=== PATIENT | female | born 1990 | race Caucasian/White ===

== ENCOUNTER 2022-11-22 11:58 | Emergency (ER) | payer BC, MEDICAID, SELFPAY ==
[2022-11-22] VITALS (10 sets, daily range): BP systolic 120–202; BP diastolic 80–139; PULSE 79–95; RESP 12–18; TEMP 36.6; O2SAT 96–100; BMI 32.4
--- NOTE | 2022-11-22 12:44 | ECG_ITS ---
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 Measurements Intervals [place] Rate: 80 P: 32 IA: 145 QRS: 41 QRSD: 94 T: 10 QT: 368 QTc: 425 Interpretive Statements SINUS RHYTHM WITH SINUS ARRHYTHMIA INTERPRETATION BASED ON A DEFAULT AGE OF 40 YEARS No previous ECG available for comparison Electronically Signed On 11-22-2022 20:37:00 CDT by Josephine Oliveira M.D. [id number]
--- NOTE | 2022-11-22 12:44 | CT_ITS ---
WS: [id number] CT HEAD NONCONTRAST HISTORY: headache, htn TECHNIQUE: Contiguous axial imaging performed through the brain in 2.5 mm imaging. Bone and soft tiss ue windows. Sagittal and coronal reformats reviewed. All CT scans at [facility] use at least one of these dose optimization techniques: automated exposure control; mA and/or kV adjustment per pa tient size (includes targeted exams where dose is matched to clinical indication); or iterative recon struction. DLP: 974.74 mGy.cm COMPARISON: None available. No acute intracranial hemorrhage, midline shift or mass effect. No atrophy or prior infarcts or herniation. Ventricles: Normal size with no hydrocephalus. Paranasal sinuses: As visualized are clear. Mastoid air cells: Well pneumatized. Calvarium and scalp: Skull is intact with no soft tissue edema or swelling. IMPRESSION: Negative head CT.
--- NOTE | 2022-11-22 12:47 | W.ED.HA ---
HPI - Headache General: Chief Complaint: Headache Stated Complaint: headache for 3 days Time Seen by Provider: 11/22/22 12:40 History of Present Illness: Presents to the ER with complaints of headache right-sided neck pain nausea vomiting started this morning. Headache started 3 days ago. She denies having any headaches prior to this. Denies any fevers chills cough cold sore throat runny nose is diarrhea. Patient saw her PCP this morning and due to her blood pressure told her to go straight to the ER. Blood pressure was 176/150 and 176/130 in triage. Review of Systems General: Reports: 10 or more systems reviewed and unremarkable except in HPI and below PFSH ED PFSH: Social History Smoking and tobacco status: never smoked Physical Exam Const: COMMON NORMALS: no acute distress, average body habitus, patient oriented x3, no limitations, healthy appearing, alert and well nourished HENMT: COMMON NORMALS: normocephalic, atraumatic, hearing grossly normal bilaterally, external ears normal, Normal external nose present and moist oral mucous membranes HEAD & SCALP: normocephalic and atraumatic NOSE: Normal external nose present EXTERNAL EAR: Yes external ears normal Eye: COMMON NORMALS: Equal, round and reactive pupils present, EOMs intact bilaterally, conjunctivae normal and no scleral icterus CONJUNCTIVA: Yes conjunctivae normal PUPIL: Yes Equal, round and reactive pupils present Neck/C-Spine: COMMON NORMALS: full ROM, no lymphadenopathy, supple, no meningeal signs, no JVD and Thyroid normal THYROID: Thyroid normal Chest: COMMONS NORMALS: normal inspection of the chest and normal palpation of entire chest wall Resp: COMMON NORMALS: normal respiratory effort, No retractions, No use of accessory muscles and clear to auscultation bilaterally AUSCULTATION: clear to auscultation bilaterally Cardio: COMMON NORMALS: no JVD, regular rate, regular rhythm, S1 normal heart sound present, S2 normal heart sound present, No gallops present (Cardio), No clicks present (Cardio), No murmurs present (Cardio) and No rub (Cardio) RATE: regular rate RHYTHM: regular rhythm HEART SOUNDS: S1 normal heart sound present and S2 normal heart sound present GI: COMMON NORMALS: Normal to inspection, nondistended, normoactive bowel sounds present, Soft to palpation, non-tender, No hepatosplenomegaly present and no masses PALPATION: Yes Soft to palpation and Yes No hepatosplenomegaly present : COMMON NORMALS: Yes no CVA tenderness BLADDER/KIDNEY EXAM: Yes no CVA tenderness Back/Pelvis: COMMON NORMALS: no CVA tenderness Neuro: COMMON NORMALS: patient oriented x3 SENSORIUM/ORIENTATION: Yes alert MENINGEAL SIGNS: Yes no meningeal signs Course Vital Signs: Vital signs: Vital Signs Temperature 97.9 F 11/22/22 12:42 Pulse Rate 82 11/22/22 13:18 Respiratory Rate 16 11/22/22 14:42 Blood Pressure 120/83 11/22/22 14:43 Pulse Oximetry 100 11/22/22 13:18 Oxygen Delivery Me thod Room Air 11/22/22 12:42 MDM - Headache Medical Decision Making Patient presents to the ER with a severely high blood pressure of 185/132 along with nausea vomiting. Patient normally does not get headaches nor has problems with blood pressure. Patient's PCP sent her over here for further evaluation. Lab work was obtained EKG and head CT are pending. Patient was given 20 mg of hydralazine IV. Blood pressure improved patient was given 4 mg of morphine 4 mg Zofran and headache improved. Patient be discharged home to follow-up with her PCP on an as-needed basis. Differential Diagnosis Likely headache; Unlikely migraine, tension headache, subarachnoid hemorrhage, meningitis, sinusitis or postconcussion syndrome Medical Records I reviewed the patient's medical records. Lab Data I reviewed the patient's lab results. 11/22/22 12:56 11/22/22 12:56 Laboratory Results WBC 7.81 10^3/uL (3.29-11.43) 11/22/22 12:56 RBC 5.81 10^6/uL (3.85-5.65) H 11/22/22 12:56 Hgb 16.20 g/dL (11.27-16.99) 11/22/22 12:56 Hct 48.1 % (36-47) H 11/22/22 12:56 MCV 82.8 fl (85-98) L 11/22/22 12:56 MCH 27.9 pg (27-33) 11/22/22 12:56 MCHC 33.7 g/dL (30-55) 11/22/22 12:56 RDW 12.2 % (12.1-15.1) 11/22/22 12:56 Plt Count 251 10^3/cmm (157-399) 11/22/22 12:56 MPV 10.9 fL (7.4-10.4) H 11/22/22 12:56 Neut % (Auto) 67.2 % 11/22/22 12:56 Lymph % (Auto) 25.1 % 11/22/22 12:56 [place] % (Auto) 4.6 % 11/22/22 12:56 Eos % (Auto) 1.9 % 11/22/22 12:56 Baso % (Auto) 0.9 % 11/22/22 12:56 Neut # (Auto) 5.25 10^3/uL (1.8-7.7) 11/22/22 12:56 Lymph # (Auto) 2.0 10^3/uL (0.8-4.8) 11/22/22 12:56 [place] # (Auto) 0.4 10^3/uL (0.2-0.9) 11/22/22 12:56 Eos # (Auto) 0.2 10^3/uL (0.0-0.8) 11/22/22 12:56 Baso # (Auto) 0.1 10^3/uL (0.0-0.1) 11/22/22 12:56 Nucleated RBC % (auto) 0 % 11/22/22 12:56 Nucleated RBCs # 0.0 /100WBC 11/22/22 12:56 Sodium 138 mmol/L (136-145) 11/22/22 12:56 Potassium 3.8 mmol/L (3.5-5.1) 11/22/22 12:56 Chloride 101 mmol/L (98-107) 11/22/22 12:56 Carbon Dioxide 27 mmol/L (22-29) 11/22/22 12:56 Anion Gap 13.8 (5-19) 11/22/22 12:56 BUN 11 mg/dL (6-20) 11/22/22 12:56 Creatinine 0.6 mg/dL (0.5-0.9) 11/22/22 12:56 GFR Calculation 115.1 mL/min (90-130) 11/22/22 12:56 Glucose 87 mg/dL (65-115) 11/22/22 12:56 Calculated Osmolality 285 mOsm/kg (285-295) 11/22/22 12:56 Calcium 9.7 mg/dL (8.5-10.5) 11/22/22 12:56 Magnesium 2.0 mg/dL (1.7-2.3) 11/22/22 12:56 Total Bilirubin 1.1 mg/dL (0.15-1.2) 11/22/22 12:56 AST 56 U/L (0-32) H 11/22/22 12:56 ALT 58 U/L (0-33) H 11/22/22 12:56 Alkaline Phosphatase 82 U/L (35-105) 11/22/22 12:56 Troponin T Baseline 6 ng/L (0-10) 11/22/22 12:56 Troponin T 120 Minute 6.00 ng/L (0-10) 11/22/22 14:31 Delta Troponin T 0 ABS# (0-10) 11/22/22 14:31 Total Protein 7.3 g/dL (6.6-8.7) 11/22/22 12:56 Albumin 4.7 g/dL (3.5-5.2) 11/22/22 12:56 Globulin 2.6 g/dL (1.3-4.6) 11/22/22 12:56 Urine Color Yellow (Yellow) 11/22/22 12:45 Urine Appearance Clear (CLEAR) 11/22/22 12:45 Urine pH 6 (5-7) 11/22/22 12:45 Ur Specific [place] 1.020 (1.005-1.030) 11/22/22 12:45 Urine Protein Neg (Negative) 11/22/22 12:45 Urine Glucose (UA) Norm (Normal) 11/22/22 12:45 Urine Ketones Negative (Negative) 11/22/22 12:45 Urine Blood Neg (Negative) 11/22/22 12:45 Urine Nitrate Negative (Negative) 11/22/22 12:45 Urine Bilirubin Neg (Negative) 11/22/22 12:45 Urine Urobilinogen Norm mg/dL (Negative) 11/22/22 12:45 Ur Leukocyte Esterase Negative (Negative) 11/22/22 12:45 EKG Data EKG 1: I personally reviewed and interpreted this EKG as follows: EKG interpretation date: 11/22/22 EKG interpretation time: 12:40 Prior EKG tracings: not available for review Interpretation: EKG showed ventricular rate 80 bpm, LA interval 145, QRS duration 94, QTc 303, sinus rhythm with sinus arrhythmia, and no ST-T wave changes EKG 2: I personally reviewed and interpreted this EKG as follows: EKG interpretation date: 11/22/22 EKG interpretation time: 14:53 Prior EKG tracings: available for review Interpretation: EKG showed ventricular rate 84 beats minute, LA interval 135, QRS duration 97, QTc 429, sinus rhythm, moderate T wave abnormality, T waves in V3 and V4 Discharge Plan Discharge Patient Disposition: Home Clinical Impression: Headache Qualifiers: Headache type: unspecified Headache chronicity pattern: acute headache Intractability: not intractable Qualified Code(s): R51.9 - Headache, unspecified Hypertension Qualifiers: Hypertension type: unspecified Qualified Code(s): I10 - Essential (primary) hypertension Condition: Stable Prescriptions: No Action estradiol 2 mg tablet 2 mg PO DAILY diphenhydramine-acetaminophen [Tylenol PM Extra Strength] 25-500 mg tablet 1 tab PO DAILY PRN (Reason: Pain) phentermine 37.5 mg tablet 37.5 mg PO DAILY lisinopril 10 mg Tablet 10 mg PO BID Discharge Orders: Discharge ED (Routine); Ordered 11/22/22 Ordered By: Barry Romero Patient Instructions: Headache, Hypertension (ED) Activity Restrictions/Additional Instructions: Please keep a blood pressure log please follow-up with your family practice physician in the next 7 to 10 days or sooner as needed. For further evaluation and treatment of your headache and blood pressure. Coding Level of Care Code ED Pasting Inspector for Leslie Dia
[2022-11-22 13:18] LABS: Basophils # 0.1 10^3/uL (0.0-0.1); Basophils % 0.9 %; Eosinophils # 0.2 10^3/uL (0.0-0.8); Eosinophils % 1.9 %; Hematocrit 48.1 % (36-47); Lymphocytes % 25.1 %; Mean Corpuscular HGB Conc 33.7 g/dL (30-55); Mean Corpuscular Hemoglobin 27.9 pg (27-33); Mean Corpuscular Volume 82.8 fl (85-98); Mean Platelet Volume 10.9 fL (7.4-10.4); Monocytes # 0.4 10^3/uL (0.2-0.9); Monocytes % 4.6 %; Neutrophils # 5.25 10^3/uL (1.8-7.7); Neutrophils % 67.2 %; Nucleated Red Blood Cells % 0 %; Platelet Count 251 10^3/cmm (157-399); Red Blood Count 5.81 10^6/uL (3.85-5.65); Red Cell Distribution Width 12.2 % (12.1-15.1); White Blood Count 7.81 10^3/uL (3.29-11.43)
[2022-11-22] MEDS: hyDRALAzine 20 mg/mL INJ 1 mL IVP (13:19)
[2022-11-22 13:30] LABS: Troponin(5th) Baseline 6 ng/L (0-10)
[2022-11-22 13:32] LABS: Add Urine Microscopic? NO; Charge for UA Resulting for Rev
[2022-11-22 13:33] LABS: Alanine Aminotransferase 58 U/L (0-33); Albumin Level 4.7 g/dL (3.5-5.2); Alkaline Phosphatase 82 U/L (35-105); Anion Gap 13.8 (5-19); Aspartate Amino Transferase 56 U/L (0-32); Blood Urea Nitrogen 11 mg/dL (6-20); Calcium 9.7 mg/dL (8.5-10.5); Carbon Dioxide 27 mmol/L (22-29); Chloride 101 mmol/L (98-107); Globulin 2.6 g/dL (1.3-4.6); Glomerular Filtration Rate 115.1 mL/min (90-130); Glucose 87 mg/dL (65-115); Osmolality Calculated 285 mOsm/kg (285-295); Potassium 3.8 mmol/L (3.5-5.1); Sodium 138 mmol/L (136-145); Total Bilirubin 1.1 mg/dL (0.15-1.2); Total Protein 7.3 g/dL (6.6-8.7)
[2022-11-22 13:36] LABS: Bilirubin Urine Neg (Negative); Blood Urine Neg (Negative); Glucose Urine UA Norm (Normal); Ketones Urine Negative (Negative); Leukocyte Esterase Urine Negative (Negative); Nitrate Urine Negative (Negative); Protein Urine Neg (Negative); Urine Appearance Clear (CLEAR); Urine Color Yellow (Yellow); Urobilinogen Urine Norm (Negative); pH Urine 6 (5-7)
[2022-11-22] MEDS: morphine 4 mg/mL SDV 1 mL IVP (14:42)
[2022-11-22] MEDS: cloNIDine 0.1 mg Tablet PO (14:43)
[2022-11-22] MEDS: ondansetron 2 mg/ML SDV 2 mL 4 MG IVP (14:52)
--- NOTE | 2022-11-22 14:53 | ECG_ITS ---
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 Measurements Intervals [place] Rate: 84 P: 47 CO: 135 QRS: 43 QRSD: 97 T: -19 QT: 388 QTc: 459 Interpretive Statements SINUS RHYTHM MODERATE T-WAVE ABNORMALITY, CONSIDER ANTERIOR ISCHEMIA [-0.1+ mV T-WAVE IN V3/V4] Compared to ECG 11/22/2022 12:40:16 T-wave abnormality now present Possible ischemia now present Sinus arrhythmia no longer present Electronically Signed On 11-22-2022 20:57:07 CDT by Josephine Oliveira M.D. [id number]
[2022-11-22 15:38] LABS: Troponin 5 2HR Delta 0 ABS# (0-10)
== END 2022-11-22 16:11 | disposition home or self-care (01) ==
PROVIDERS: Emergency Provider Emergency Medicine
DX: R51.9 Headache, unspecified (principal); I10 Essential (primary) hypertension
CPT/HCPCS: 36415; 70450; 80053; 81003; 83735; 84484; 85025; 93005; 96374; 96375; 99285; J0360; J2270; J2405